=== PATIENT | male | born 1985 | race Two or more races ===

== ENCOUNTER 2022-03-02 08:46 | Emergency (ER) | payer BC ==
[~2022-03-02] VITALS: Ht 170.2 cm; Wt 143.2 kg
[2022-03-02 08:53] VITALS: BP 131/82
== END 2022-03-02 10:59 | disposition home or self-care (01) ==
LOC: ER 08:47
DX: S50.02XA Contusion of left elbow, initial encounter (principal); Z88.8 Allergy status to other drugs, medicaments and biological substances; X50.0XXA Overexertion from strenuous movement or load, initial encounter; Y93.89 Activity, other specified; Y92.89 Other specified places as the place of occurrence of the external cause; Y99.8 Other external cause status
CPT/HCPCS: 73080; 99283